=== PATIENT | female | born 1975 | race American Indian/Alaskan Native ===

== ENCOUNTER 2017-06-28 05:44 | Day surgery (SDC) | payer MEDICAID ==
--- NOTE | 2017-06-26 13:14 | Anesthesia Consultation ---
Anesthesia Consult and Med Hx Date of service: 06/26/17 - Airway Anesthetic Teeth Evaluation: Good ROM Head & Neck: Adequate Mental/Hyoid Distance: Adequate Mallampati Class: Class II Intubation Access Assessment: Probably Good - Pulmonary Exam CTA: Yes - Cardiac Exam Cardiac Exam: No Murmur (Irregular rhythm. I have requested an EKG and records from previous inside sales person rachael) - Pre-Operative Health Status ASA Pre-Surgery Classification: ASA2 Proposed Anesthetic Plan: General - Pulmonary Hx Smoking: Yes (past hx) - Cardiovascular System Hx Cardia Arrhythmia: No (obtaining an EKG and records at this time) - Central Nervous System Hx Psychiatric Problems: No - Gastrointestinal Hx Gastroesophageal Reflux Disease: No - Endocrine Hx Non-Insulin Dependent Diabetes: No Hx Thyroid Disease: No - Hematic Hx Anemia: Yes - Other Systems Hx Alcohol Use: Yes (occas) Hx Substance Use: No Hx Cancer: No
[2017-06-26 13:31] LABS: Basophils # (Auto) 0.1 K/mm3 (0.0-0.1); Basophils % (Auto) 1.5 % (0.0-1.8); Eosinophils % (Auto) 0.7 % (0.0-4.3); Lymphocytes # (Auto) 1.9 K/mm3 (1.2-5.4); Lymphocytes % (Auto) 28.9 % (13.4-35.0); Mean Corpuscular HGB Conc 30 % (30-34); Mean Corpuscular Volume 76 fl (79-97); Monocytes # (Auto) 0.4 K/mm3 (0.0-0.8); Monocytes % (Auto) 6.3 % (0.0-7.3); Platelet Count 466 K/mm3 (140-440); Red Blood Count 4.32 M/mm3 (3.65-5.03); Red Cell Distribution Width 19.1 % (13.2-15.2)
[2017-06-26 13:34] LABS: Hematocrit 32.8 % (30.3-42.9); Hemoglobin 9.9 gm/dl (10.1-14.3); Mean Corpuscular Hemoglobin 23 pg (28-32)
--- NOTE | 2017-06-27 17:25 | Short Stay Summary ---
Short Stay Documentation Date of service: 06/28/17 Narrative H&P: 42y/o with dysfunctional uterine bleeding. Pelvic ultrasound with findings of a 9.3cm uterus. She elects for surgical management of her symptoms. Patient has been reassessed/reevaluated/re-examined. H&P has been reviewed. No interval changes. - History Principal diagnosis: dysfunctional uterine bleeding Past Medical History: GERD, other (bronchitis; depression) Past Surgical History: Other (D&C; BTL; ) Social history: single, smoking - Allergies and Medications Current Medications: Allergies No Known Allergies Allergy (Verified 06/26/17 10:14) Home Medications Medication Instructions Recorded Confirmed Last Taken Type No Known Home Medications [No 06/26/17 06/26/17 Unknown History Reported Home Medications] Active Medications Sodium Chloride (Nacl 0.9% 1000 Ml) 1,000 mls @ 42 mls/hr IV DIRECT YOGI - Physical exam General appearance: no acute distress Integumentary: no rash HEENT: Atraumatic Lungs: Clear to auscultation Breasts: deferred Heart: Regular rate Gastrointestinal: normal Female Genitourinary: deferred Rectal Exam: deferred - Brief post op/procedure progress note Date of procedure: 06/28/17 Pre-op diagnosis: dysfunctional uterine bleeding Post-op diagnosis: same Procedure: hysteroscopy; endometrial ablation via NovaSure; excision of mole Anesthesia: DEBRA Surgeon: VIDHI TIAN Estimated blood loss: minimal Pathology: list (skin tag) Specimen disposition: to lab Condition: stable - Hospital course Hospital course: The patient was admitted the day of surgery and underwent an excision of a skin tag and an endometrial ablation. Please see operative note for details of surgery. Her postoperative course was uneventful. - Disposition Condition at discharge: Good Disposition: DC-01 TO HOME OR SELFCARE Short Stay Discharge Plan Activity: other (pelvic rest for 1 week) Diet: regular Additional Instructions: Scheduled follow-up with Dr. Bond in 2-4 weeks Prescriptions: Ibuprofen [Motrin] 800 mg PO Q8HR PRN #60 tablet PRN Reason: Pain oxyCODONE /ACETAMINOPHEN [Percocet 5/325] 1 tab PO Q6HR PRN #30 tablet PRN Reason: Pain
[~2017-06-28 05:44] MED LIST: NACL 0.9% 1000 ML 1,000 ML IV SCH
[2017-06-28] MEDS ORDERED: NACL BACTERIOSTATIC INFILTRATI ONE (06:38)
[2017-06-28] MEDS ORDERED: DILAUDID ONE (07:13)
[2017-06-28] MEDS ORDERED: DIPRIVAN 10 MG/ML IV ONE (07:14)
--- NOTE | 2017-06-28 07:20 | Anesthesia Day of Surgery ---
Anesthesia Day of Surgery - Day of Surgery Patient Examined: Yes Patient H&P Reviewed: Yes Patient is NPO: Yes
[2017-06-28] MEDS ORDERED: ZOFRAN IV PRN ×2 (07:30→07:44)
[2017-06-28] MEDS ORDERED: XYLOCAINE 1%/ EPI 1:100,000 INFILTRATI ONE ×3 (07:35→08:00)
[2017-06-28] MEDS ORDERED: DILAUDID IV PRN ×2 (07:44→08:00)
[2017-06-28] MEDS ORDERED: TORADOL IV PRN (07:44)
--- NOTE | 2017-06-28 07:45 | Anesthesia Consultation ---
Anesthesia Consult and Med Hx - Airway Anesthetic Teeth Evaluation: Good ROM Head & Neck: Adequate Mallampati Class: Class II - Cardiac Exam Cardiac Exam: RRR - Pre-Operative Health Status ASA Pre-Surgery Classification: ASA2 Proposed Anesthetic Plan: General - Pulmonary Hx Smoking: Yes (past hx) - Cardiovascular System Hx Cardia Arrhythmia: No (obtaining an EKG and records at this time) - Central Nervous System Hx Psychiatric Problems: No - Gastrointestinal Hx Gastroesophageal Reflux Disease: No - Endocrine Hx Non-Insulin Dependent Diabetes: No Hx Thyroid Disease: No - Hematic Hx Anemia: Yes - Other Systems Hx Alcohol Use: Yes (occas) Hx Substance Use: No Hx Cancer: No
[2017-06-28] MEDS ORDERED: LACTATED RINGERS 1,000 ML IV SCH (08:00)
[2017-06-28] MEDS ORDERED: NACL 0.9% IR ONE (08:00)
[2017-06-28] MEDS ORDERED: VERSED IV NR (08:00)
--- NOTE | 2017-06-28 08:31 | Operative Report ---
Operative Report Operative Report: Date of procedure: 06/28/2017 Pre-operative diagnosis: Dysfunctional uterine bleeding Post-operative diagnosis: Same as above Procedure name(s): Hysteroscopy; endometrial ablation via NovaSure; excision of skin tag Surgeon: Pamela Lincoln M.D. Rotary Pump Operator: None Anesthesia: LMA Pathology: Skin tag Findings pedunculated skin tag on the right buttock; normal endometrial cavity Indication: 42-year-old black female with a history of dysfunctional uterine bleeding. The patient failed medical management and elected to undergo surgical management. Procedure The patient was taken to the operating room. While awake the patient was placed with a lateral tilt. The skin tag on her right buttock was prepped. The site was injected with lidocaine and epinephrine. The skin tag was grasped with Adson graspers and the skin tag was incised with a 15 blade scalpel. There was no active bleeding after removal of the skin tag. A Steri-Strip was placed across the site along with a pressure dressing. The patient was then given laryngeal mask anesthesia without complication. The patient was prepped and draped in a normal sterile fashion. A bivalve speculum was placed in the patient's vagina single-tooth tenaculums placed on the anterior lip of the cervix. The cervical os was dilated with graduated dilators. A uterine sound was inserted. The hysteroscope was then placed. Insufflation of the uterine cavity was performed with normal saline. Gen. survey of the uterine cavity revealed normal uterine cavity. The hysteroscope was then removed. The NovaSure device was then inserted. The endometrial length was 5.5 cm and the uterine width was 4.7 cm. The device was engaged and it passed the surveillance of the uterine cavity. The NovaSure device was then deployed with a energy of 142 that lasted for 2 minutes. The NovaSure device was then removed. The hysteroscope was again reinserted. There was evidence of charring of the endometrial surface. The remainder of the vaginal instruments were then removed atraumatically. The patient was then successfully extubated taken to the recovery room. All sponge laps and needle counts were correct 2.
--- NOTE | 2017-06-28 09:07 | Post Anesthesia Evaluation ---
- Post Anesthesia Evaluation Patient Participated: Yes Airway Patent: Yes Stable Respiratory Function: Yes Nausea/Vomiting: No Temp > 96.8F: Yes Pain Manageable: Yes Adequeate Hydration: Yes Anesthesia Complications: No
[2017-06-28] MEDS ORDERED: ZOFRAN ONE (09:22)
[2017-06-28] MEDS ORDERED: XYLOCAINE MPF 2% ONE (09:22)
[2017-06-28] MEDS ORDERED: PERCOCET 5/325 PO PRN (10:00)
[2017-06-28 10:14] VITALS: BP 129/60
== END 2017-06-28 10:15 | disposition home or self-care (01) ==
LOC: OR 05:44
PROVIDERS: ATTEND Obstetrics & Gynecology
DX: N93.8 Other specified abnormal uterine and vaginal bleeding (principal); K21.9 Gastro-esophageal reflux disease without esophagitis; F32.9 Major depressive disorder, single episode, unspecified; Z87.891 Personal history of nicotine dependence
CPT/HCPCS: 36415; 58563; 84703; 85025; 88304; 93005; 93010; A4217; J1170; J1885; J2250; J2405; J2704; J7030

== ENCOUNTER 2019-09-30 13:51 | Emergency (ER) | payer SELFPAY ==
[2019-09-30 15:39] VITALS: BP 173/96
--- NOTE | 2019-09-30 15:41 | Event Note ---
ED Screening Note Date of service: 09/30/19 Time: 15:40 ED Screening Note: Patient complains of intermittent abdominal pain for the past month, now worsening with blood in the stools (primarily when she wipes) Reports she has been following with a PCP and is scheduled to see a casing operator soon denies fever Admits to dysuria No CVA tenderness noted on exam There is tenderness to palpation in the right lower quadrant This initial assessment/diagnostic orders/clinical plan/treatment(s) is/are subject to change based on patients health status, clinical progression and re- assessment by fellow clinical providers in the ED. Further treatment and workup at subsequent clinical providers discretion. Patient/guardian urged not to elope from the ED as their condition may be serious if not clinically assessed and managed. Initial orders include: Labs CT abdomen
[2019-09-30 16:49] LABS: Basophils # (Auto) 0.1 K/mm3 (0.0-0.1); Basophils % (Auto) 1.1 % (0.0-1.8); Eosinophils # (Auto) 0.1 K/mm3 (0.0-0.4); Eosinophils % (Auto) 0.7 % (0.0-4.3); Hematocrit 38.6 % (30.3-42.9); Hemoglobin 12.7 gm/dl (10.1-14.3); Lymphocytes # (Auto) 2.4 K/mm3 (1.2-5.4); Lymphocytes % (Auto) 26.9 % (13.4-35.0); Mean Corpuscular HGB Conc 33 % (30-34); Mean Corpuscular Volume 89 fl (79-97); Monocytes # (Auto) 0.5 K/mm3 (0.0-0.8); Monocytes % (Auto) 5.8 % (0.0-7.3); Platelet Count 457 K/mm3 (140-440); Red Blood Count 4.34 M/mm3 (3.65-5.03); Red Cell Distribution Width 17.8 % (13.2-15.2)
[2019-09-30 16:59] LABS: Bilirubin,Urine NEG (Negative); Blood,Urine LG (Negative); Color,Urine Yellow (Yellow); Mucus,Urine 3+ /HPF
[2019-09-30 17:01] LABS: INR 1.02 (0.87-1.13)
[2019-09-30 17:02] LABS: Partial Thromboplastin Time 24.4 Sec. (24.2-36.6)
[2019-09-30 17:35] LABS: BUN/Creatinine Ratio 15; Blood Urea Nitrogen 15 mg/dL (7-17)
[2019-09-30 17:36] LABS: Alanine Aminotransferase 10 units/L (7-56); Albumin 4.2 g/dL (3.9-5); Calcium 9.2 mg/dL (8.4-10.2); Hemolysis Index 10
--- NOTE | 2019-09-30 20:25 | Emergency Department Report ---
ED General Adult HPI - General Chief complaint: Rectal Pain Stated complaint: BACK PAIN Time Seen by Provider: 09/30/19 15:37 Source: patient Mode of arrival: Ambulatory Limitations: No Limitations - History of Present Illness Initial comments: Patient complains of intermittent abdominal pain for the past month, now worsening with blood in the stools (primarily when she wipes) Reports she has been following with a PCP and is scheduled to see a gastroe nterologist soon denies fever, denies any vaginal discharge no dysuria no urinary frequency or urgency. Last menstrual period was 09/13/2019. No past medical history currently takes no medications on a daily basis and has no known drug allergies. Onset/Timin (Worse than the last day) -: month(s) Location: pelvis, genitals Severity scale (0 -10): 8 Quality: sharp Consistency: intermittent Improves with: none Worsens with: none Associated Symptoms: denies: chest pain, cough, diaphoresis, fever/chills, headaches, loss of appetite, nausea/vomiting, shortness of breath Treatments Prior to Arrival: none - Related Data Previous Rx's Medication Instructions Recorded Last Taken Type HYDROcodone/APAP 5-325 [[place] 1 each PO Q6HR PRN #30 tablet 06/28/17 Unknown Rx 5/325] Ibuprofen [Motrin] 800 mg PO Q8HR PRN #60 tablet 06/28/17 Unknown Rx oxyCODONE /ACETAMINOPHEN [Percocet 1 tab PO Q6HR PRN #30 tablet 06/28/17 Unknown Rx 5/325] Nitrofurantoin Bradford/M-Cryst 100 mg PO Q12HR 7 Days #14 capsule 09/30/19 Unknown Rx [Macrobid CAP] Allergies Allergy/AdvReac Type Severity Reaction Status Date / Time No Known Allergies Allergy Verified 06/26/17 10:14 ED Review of Systems ROS: Stated complaint: BACK PAIN Other details as noted in HPI Comment: All other systems reviewed and negative ED Past Medical Hx - Past Medical History Previous Medical History?: No Additional medical history: viral meningitis - Surgical History Past Surgical History?: No Additional Surgical History: C section. Tubal ligation - Social History Smoking Status: Unknown if ever smoked Substance Use Type: None - Medications Home Medications: Home Medications Medication Instructions Recorded Confirmed Last Taken Type HYDROcodone/APAP 5-325 [[place] 1 each PO Q6HR PRN #30 tablet 06/28/17 Unknown Rx 5/325] Ibuprofen [Motrin] 800 mg PO Q8HR PRN #60 tablet 06/28/17 Unknown Rx oxyCODONE /ACETAMINOPHEN [Percocet 1 tab PO Q6HR PRN #30 tablet 06/28/17 Unknown Rx 5/325] Nitrofurantoin Bradford/M-Cryst 100 mg PO Q12HR 7 Days #14 capsule 09/30/19 Unknown Rx [Macrobid CAP] ED Physical Exam - General Limitations: No Limitations General appearance: alert, in no apparent distress - Head Head exam: Present: atraumatic, normocephalic - Eye Eye exam: Present: normal appearance, EOMI - ENT ENT exam: Present: mucous membranes moist - Neck Neck exam: Present: normal inspection, full ROM - Respiratory Respiratory exam: Present: normal lung sounds bilaterally - Cardiovascular Cardiovascular Exam: Present: regular rate, normal rhythm. Absent: systolic murmur, diastolic murmur, rubs, gallop - GI/Abdominal GI/Abdominal exam: Present: soft. Absent: distended, tenderness - Extremities Exam Extremities exam: Present: normal inspection, full ROM - Back Exam Back exam: Present: normal inspection, full ROM - Neurological Exam Neurological exam: Present: alert, oriented X3, normal gait - Psychiatric Psychiatric exam: Present: normal affect, normal mood - Skin Skin exam: Present: warm, dry, intact, normal color. Absent: rash ED Course Vital Signs 09/30/19 15:37 Temperature 98.2 F Pulse Rate 100 H Respiratory 18 Rate Blood Pressure 173/96 O2 Sat by Pulse 100 Oximetry ED Medical Decision Making - Lab Data Result diagrams: 09/30/19 16:34 09/30/19 16:34 - Radiology Data Radiology results: report reviewed Ordering Physician: PIO AGUIAR Date of Service: 09/30/19 Procedure(s): CT abdomen pelvis w con Accession Number(s): [id number] cc: PIO AGUIAR CT ABDOMEN AND PELVIS WITH CONTRAST INDICATION: lower abdominal pain, blood in stools CONTRAST: 100 cc Omnipaque 300 IV COMPARISON: None available. All CT scans at this location are performed using CT dose reduction for ALARA by means of automated exposure control. NOTE: Resolution is decreased and artifact is introduced by the patient's size. FINDINGS: Lung bases are clear. No pneumoperitoneum is noted. No significant abdominal wall herniations are seen. Liver is enlarged and has a length of 20 cm with mild fatty infiltration seen. Small cyst is noted anteriorly in the right lobe. An apparent small cyst is seen in the right kidney midportion anteriorly. No urinary obstructive changes are noted. No other masses are seen. I see no abnormalities of the gallbladder or bile ducts. Minimal hiatal hernia is seen. Mild colonic diverticulosis is noted without evidence of diverticulitis. Appendix appears within normal limits. No evidence of bowel obstruction is seen. No focal inflammatory changes are noted. No free fluid is seen. No adnexal masses are noted. Surgical changes are seen in the right adnexa. Uterus probably has small leiomyomata. IMPRESSION: No acute abnormalities are seen Signer Name: Sabas Lopez MD Signed: 09/30/2019 9:04 PM Workstation Name: [id number] Transcribed By: ADELIA Dictated By: Sabas Lopez MD Electronically Authenticated By: Sabas Lopez MD Signed Date/Time: 09/30/192103 - Medical Decision Making Patient complains of intermittent abdominal pain for the past month, now worsen ing with blood in the stools (primarily when she wipes) Reports she has been following with a PCP and is scheduled to see a treasury accountant soon denies fever, denies any vaginal discharge no dysuria no urinary frequency or urgency. Last menstrual period was 09/13/2019. No past medical history cu rrently takes no medications on a daily basis and has no known drug allergies. CT is negative for any acute findings. Urinalysis patient appears to have a urinary tract infection. CBC is within normal limits. Critical care attestation.: If time is entered above; I have spent that time in minutes in the direct care of this critically ill patient, excluding procedure time. ED Disposition Clinical Impression: UTI (urinary tract infection) Qualifiers: Urinary tract infection type: site unspecified Hematuria presence: with hematuria Qualified Code(s): N39.0 - Urinary tract infection, site not specified; R31.9 - Hematuria, unspecified Disposition: DC-01 TO HOME OR SELFCARE Is pt being admited?: No Does the pt Need Aspirin: No Condition: Stable Instructions: Urinary Tract Infection in Women (ED) Additional Instructions: CT scan was negative for any acute abnormalities. Your urine shows that you have a urinary tract infection. I will place her on antibiotics I want to complete. Increase your water intake. Be sure to void after intercourse. Prescriptions: Nitrofurantoin Bradford/M-Cryst [Macrobid CAP] 100 mg PO Q12HR 7 Days #14 capsule Referrals: PRIMARY CARE, [Primary Care Provider] - 3-5 Days [facility] [Provider Group] - 3-5 Days Forms: Work/School Release Form(ED)
--- NOTE | 2019-09-30 21:09 | Cat Scan Report ---
CT ABDOMEN AND PELVIS WITH CONTRAST INDICATION: lower abdominal pain, blood in stools CONTRAST: 100 cc Omnipaque 300 IV COMPARISON: None available. All CT scans at this location are performed using CT dose reduction for ALARA by means of automated e xposure control. NOTE: Resolution is decreased and artifact is introduced by the patient's size. FINDINGS: Lung bases are clear. No pneumoperitoneum is noted. No significant abdominal wall herniatio ns are seen. Liver is enlarged and has a length of 20 cm with mild fatty infiltration seen. Small cys t is noted anteriorly in the right lobe. An apparent small cyst is seen in the right kidney midportio n anteriorly. No urinary obstructive changes are noted. No other masses are seen. I see no abnormalit ies of the gallbladder or bile ducts. Minimal hiatal hernia is seen. Mild colonic diverticulosis is n oted without evidence of diverticulitis. Appendix appears within normal limits. No evidence of bowel obstruction is seen. No focal inflammatory changes are noted. No free fluid is seen. No adnexal yari s are noted. Surgical changes are seen in the right adnexa. Uterus probably has small leiomyomata. IMPRESSION: No acute abnormalities are seen Signer Name: Sabas Lopez MD Signed: 09/30/2019 9:04 PM Workstation Name: [id number]
== END 2019-09-30 21:36 | disposition home or self-care (01) ==
LOC: ED 13:51
DX: N39.0 Urinary tract infection, site not specified (principal); Z98.51 Tubal ligation status; Z98.890 Other specified postprocedural states
CPT/HCPCS: 36415; 74177; 80053; 81001; 83690; 85025; 85610; 85730; 87086; 99284; Q9967

== ENCOUNTER 2020-12-01 02:56 | Emergency (ER) | payer SELFPAY ==
[2020-12-01] MEDS: IBUPROFEN 600 MG TAB PO ONE (04:50)
[2020-12-01] MEDS: ACETAMINOPHEN 500 MG TAB PO ONE (04:50)
--- NOTE | 2020-12-01 10:30 | Emergency Department Report ---
- General Chief Complaint: Earache Stated Complaint: DIZZY UNWELL Time Seen by Provider: 12/01/20 10:24 Source: patient Mode of arrival: Ambulatory Limitations: No Limitations - History of Present Illness Initial Comments: Patient is a 45-year-old female presents emergency room with complaints of right ear pain that began yesterday. She has associated fever, dizziness, nausea, s ore throat. She denies any cough, vomiting, diarrhea, shortness of breath, chest pain, abdominal pain. Patient states that she did go to a over the weekend. She has not been vaccinated for COVID-19. She has no allergies to medications. - Related Data Previous Rx's Medication Instructions Recorded Last Taken Type HYDROcodone/APAP 5-325 [[place] 1 each PO Q6HR PRN #30 tablet 06/28/17 Unknown Rx 5/325] Ibuprofen [Motrin] 800 mg PO Q8HR PRN #60 tablet 06/28/17 Unknown Rx oxyCODONE /ACETAMINOPHEN [Percocet 1 tab PO Q6HR PRN #30 tablet 06/28/17 Unknown Rx 5/325] Nitrofurantoin [place]/M-Cryst 100 mg PO Q12HR 7 Days #14 capsule 09/30/19 Unknown Rx [Macrobid CAP] Meclizine HCl 25 mg PO TID PRN #30 tablet 12/01/20 Unknown Rx Allergies Allergy/AdvReac Type Severity Reaction Status Date / Time No Known Allergies Allergy Verified 06/26/17 10:14 ED Review of Systems ROS: Stated complaint: DIZZY UNWELL Other details as noted in HPI Comment: All other systems reviewed and negative ED Past Medical Hx - Past Medical History Additional medical history: viral meningitis - Surgical History Additional Surgical History: C section. Tubal ligation - Social History Smoking Status: Unknown if ever smoked Substance Use Type: None - Medications Home Medications: Home Medications Medication Instructions Recorded Confirmed Last Taken Type HYDROcodone/APAP 5-325 [[place] 1 each PO Q6HR PRN #30 tablet 06/28/17 Unknown Rx 5/325] Ibuprofen [Motrin] 800 mg PO Q8HR PRN #60 tablet 06/28/17 Unknown Rx oxyCODONE /ACETAMINOPHEN [Percocet 1 tab PO Q6HR PRN #30 tablet 06/28/17 Unknown Rx 5/325] Nitrofurantoin Cannon/M-Cryst 100 mg PO Q12HR 7 Days #14 capsule 09/30/19 Unknown Rx [Macrobid CAP] Meclizine HCl 25 mg PO TID PRN #30 tablet 12/01/20 Unknown Rx ED Physical Exam - General Limitations: No Limitations General appearance: alert, in no apparent distress - Head Head exam: Present: atraumatic, normocephalic - Eye Eye exam: Present: normal appearance - ENT ENT exam: Present: normal orophraynx, mucous membranes moist, other (left TM and canal are normal, right TM has cerumen present difficulty visualizing TM) - Neck Neck exam: Present: full ROM. Absent: meningismus - Respiratory Respiratory exam: Present: normal lung sounds bilaterally. Absent: respiratory distress, wheezes, rales, rhonchi, stridor, chest wall tenderness, accessory muscle use, decreased breath sounds, prolonged expiratory - Cardiovascular Cardiovascular Exam: Present: regular rate, normal rhythm, normal heart sounds. Absent: systolic murmur, diastolic murmur, rubs, gallop - Neurological Exam Neurological exam: Present: alert, oriented X3 - Psychiatric Psychiatric exam: Present: normal affect, normal mood - Skin Skin exam: Present: warm, dry, intact ED Course Vital Signs 12/01/20 12/01/20 04:43 12:36 Temperature 103.0 F H 98.6 F Pulse Rate 103 H Respiratory 18 20 Rate Blood Pressure 143/77 158/75 O2 Sat by Pulse 95 Oximetry - Ear Wax Removal Right Ear Cerumenolytic Used: Colace Ear Canal Irrigated by: other (PA-C) Ear Canal Irrigated With: warm saline using syringe/angiocath Ear Canal(s) Curettaged: plastic loops Results: Re-examined: cerumen removed completel TM Visible: TM(s) intact, normal appe Ear Canal: atraumatic Patient Tolerated Procedure: well, no complications Complications: no problems ED Medical Decision Making - Lab Data Vital Signs 12/01/20 12/01/20 04:43 12:36 Temperature 103.0 F H 98.6 F Pulse Rate 103 H Respiratory 18 20 Rate Blood Pressure 143/77 158/75 O2 Sat by Pulse 95 Oximetry - Medical Decision Making Patient is a 45-year-old female presents emergency room with complaints of right ear pain that began yesterday. She has associated fever, dizziness, nausea, sore throat. She denies any cough, vomiting, diarrhea, shortness of breath, chest pain, abdominal pain. Patient states that she did go to a over the weekend. She has not been vaccinated for COVID-19. She has no allergies to medications. Initial vitals with fever and mild tachycardia which improved to normal upon repeat. On exam:left TM and canal are normal, right TM has cerumen present difficulty visualizing TM, breath sounds are clear bilaterally, no wheezing, no rales, no rhonchi. Cerumen removal per procedure note with resolution of symptoms. Patient symptoms could likely be consistent with URI. Given that patient is presenting during COVID-19 pandemic, discussed the possibility of COVID-19 with patient, discussed return precautions, discussed outpatient testing, discussed self quarantine. Advised patient Please take medication as prescribed as needed. Please increase your fluid intake over the next several days. May take Tylenol as needed for fever or body aches. May take dpyh-ttr-twvyucy cold symptom relief medication such as Mucinex or TheraFlu. Get plenty of rest. Follow-up with a primary care doctor for reexamination. Return to emergency room immediately for any new or worsening symptoms including but not limited to difficulty breathing, shortness of breath, severe chest pain, unable to tolerate by mouth intake, etc. recommend for you to get outpatient COVID-19 testing and to self quarantine for 10 days from onset of symptoms of positive. May use Debrox ear cleaning solution kit to help with wax removal in the future, do not use Q-tips. Critical care attestation.: If time is entered above; I have spent that time in minutes in the direct care of this critically ill patient, excluding procedure time. ED Disposition Clinical Impression: Upper respiratory infection Qualifiers: URI type: unspecified URI Qualified Code(s): J06.9 - Acute upper respiratory infection, unspecified Cerumen impaction Qualifiers: Laterality: right Qualified Code(s): H61.21 - Impacted cerumen, right ear Disposition: 01 HOME / SELF CARE / HOMELESS Is pt being admited?: No Does the pt Need Aspirin: No Condition: Stable Instructions: Earwax Buildup, Adult, Upper Respiratory Infection, Adult Additional Instructions: Please take medication as prescribed as needed. Please increase your fluid intake over the next several days. May take Tylenol as needed for fever or body aches. May take tywf-kpt-wcnbrxi cold symptom relief medication such as Mucinex or TheraFlu. Get plenty of rest. Follow-up with a primary care doctor for reexamination. Return to emergency room immediately for any new or worsening symptoms including but not limited to difficulty breathing, shortness of breath, severe chest pain, unable to tolerate by mouth intake, etc. recommend for you to get outpatient COVID-19 testing and to self quarantine for 10 days from onset of symptoms of positive. May use Debrox ear cleaning solution kit to help with wax removal in the future, do not use Q-tips. Prescriptions: Meclizine HCl 25 mg PO TID PRN #30 tablet PRN Reason: dizziness/vomiting Referrals: [facility] LINDSEY MD [Primary Care Provider] - 2-3 Days Forms: Work/School Release Form(ED) Time of Disposition: 12:17 Print Language: SAMI
[2020-12-01] MEDS: DOCUSATE SODIUM 100 MG/10 ML ORAL LIQD PO ONE (11:17)
[2020-12-01 12:37] VITALS: BP 158/75
== END 2020-12-01 12:37 | disposition home or self-care (01) ==
LOC: ED 02:56
DX: H61.21 Impacted cerumen, right ear (principal); J06.9 Acute upper respiratory infection, unspecified; Z98.51 Tubal ligation status; Z98.890 Other specified postprocedural states; Z79.899 Other long term (current) drug therapy
CPT/HCPCS: 99282

== ENCOUNTER 2021-01-27 16:00 | Outpatient (CLI) | payer OTHER | END 2021-01-27 16:01 | disposition home or self-care (01) | LOC: SPVWC 16:00 | PROVIDERS: ATTEND Obstetrics & Gynecology | DX: Z12.31 Encounter for screening mammogram for malignant neoplasm of breast (principal) | CPT/HCPCS: 77067 ==